=== PATIENT | male | born 1940 | race Caucasian/White ===

== ENCOUNTER 2018-12-21 09:53 | Day surgery (SDC) | payer MEDICARE, OTHER ==
[2018-12-16 09:59] LABS: BASOPHILS % (AUTO) 0.6 % (0-1); EOSINOPHILS # (AUTO) 0.3 X10'3 (0-0.9); EOSINOPHILS % (AUTO) 4.6 % (0-6); HEMATOCRIT 45.8 % (42.0-52.0); HEMOGLOBIN 15.6 g/dl (14.0-17.9); LYMPHOCYTES # (AUTO) 0.9 X10'3 (1.1-4.8); LYMPHOCYTES % (AUTO) 15.8 % (21-51); MEAN CORPUSCULAR HEMOGLOBIN 31.8 PG (27.0-31.0); MEAN CORPUSCULAR VOLUME 93.5 FL (78-98); MEAN PLATELET VOLUME 9.5 FL (7.4-10.4); MONOCYTES # (AUTO) 0.5 X10'3 (0-0.9); MONOCYTES % (AUTO) 8.5 % (2-12); NEUTROPHILS # (AUTO) 3.9 X10'3 (1.8-7.7); NEUTROPHILS % (AUTO) 70.5 % (42-75); PLATELET COUNT 136 X10'3 (140-440); RED CELL DISTRIBUTION WIDTH 13.9 % (11.5-14.5); WHITE BLOOD COUNT 5.5 X10'3 (4.5-11.0)
[2018-12-16 10:08] LABS: PARTIAL THROMBOPLASTIN TIME 25 SECONDS (22-32)
[2018-12-16 10:10] LABS: ALANINE AMINOTRANSFERASE 26 U/L (12-78); ALBUMIN 3.6 G/DL (3.4-5.0); ALBUMIN/GLOBULIN RATIO 1.1 (1.1-1.5); ALKALINE PHOSPHATASE 67 IU/L (46-116); ANION GAP 9 (8-16); ASPARTATE AMINO TRANSFERASE 22 U/L (10-37); BILIRUBIN,TOTAL 0.7 MG/DL (0.1-1.0); BLOOD UREA NITROGEN 19 MG/DL (7-18); BUN/CREATININE RATIO 16.7 (5.4-32.0); CHLORIDE 105 MMOL/L (99-107); CREATININE 1.14 MG/DL (0.60-1.10); GLUCOSE 165 MG/DL (70-104); POTASSIUM 3.9 MMOL/L (3.5-5.1); SODIUM 142 MMOL/L (135-145); TOTAL CARBON DIOXIDE 28.1 MMOL/L (24-32); TOTAL PROTEIN 6.8 G/DL (6.4-8.2); eGFR 62 ML/MIN
[~2018-12-21] VITALS: Ht 175.3 cm; Wt 110.8 kg
[2018-12-21] VITALS (12 sets, daily range): BP systolic 116–138; BP diastolic 48–81
[2018-12-21] MEDS ORDERED: LOSA1TAB36 PO (10:28)
[2018-12-21] MEDS ORDERED: VALA500T PO (10:28)
[2018-12-21] MEDS ORDERED: LYSI500T11 PO (10:28)
[2018-12-21] MEDS ORDERED: ASPI-611 PO (10:28)
[2018-12-21] MEDS ORDERED: VALS1TAB2 PO (10:28)
[2018-12-21] MEDS ORDERED: ASCO500C15 PO (10:28)
[2018-12-21] MEDS ORDERED: NEBI2.5T3 PO (10:28)
[2018-12-21] MEDS ORDERED: LORazepam 0.5 MG tablet PO PRN (10:45)
[2018-12-21] MEDS ORDERED: normal saline 1,000 ML IV SCH (10:45)
[2018-12-21] MEDS ORDERED: nitroGLYCERIN 0.4mg SUBLingual tab SL PRN (10:45)
[2018-12-21] MEDS ORDERED: diphenhydrAMINE 25mg capsule PO PRN (10:45)
[2018-12-21] MEDS ORDERED: midazolam 2 mg/2 ml injection ONE ×2 (11:51→12:42)
[2018-12-21] MEDS ORDERED: fentaNYL/PF 50MCG/1 ML 2ML syringe ONE (11:51)
[2018-12-21] MEDS ORDERED: iohexol 350MG/ML 100ml bottle IV ONE (11:52)
[2018-12-21] MEDS ORDERED: LIDOcaine 1% (10mg/ml)w/preservative injection 20ml MDV ONE (11:52)
[2018-12-21] MEDS ORDERED: iohexol 350 MG/ML 50ML vial IV ONE (11:52)
[2018-12-21] MEDS ORDERED: ondansetron/PF 4mg/2ml inj IV PRN (13:30)
[2018-12-21] MEDS ORDERED: OXAZEpam 15mg capsule PO PRN (13:30)
[2018-12-21] MEDS ORDERED: proCHLORperazine 10 MG/2 ml inj IV PRN (13:30)
== END 2018-12-21 19:30 | disposition home or self-care (01) ==
LOC: SSTAY O 09:53
PROVIDERS: ATTEND Internal Medicine Cardiovascular Disease
DX: R94.39 Abnormal result of other cardiovascular function study (principal); I25.10 Atherosclerotic heart disease of native coronary artery without angina pectoris; F17.210 Nicotine dependence, cigarettes, uncomplicated; I10 Essential (primary) hypertension; M19.90 Unspecified osteoarthritis, unspecified site; E78.5 Hyperlipidemia, unspecified; Z79.01 Long term (current) use of anticoagulants; Z79.899 Other long term (current) drug therapy; Z88.8 Allergy status to other drugs, medicaments and biological substances; Z85.46 Personal history of malignant neoplasm of prostate
CPT/HCPCS: 36415; 71046; 80053; 85025; 85610; 85730; 93458; 99152; C1769; J1644; J2001; J2250; J3010; J7030; Q0163; Q9967; 99153; A4620; A6258; C1760

== ENCOUNTER 2019-08-19 09:44 | Day surgery (SDC) | payer MEDICARE, OTHER ==
[~2019-08-19] VITALS: Ht 175.3 cm; Wt 113.6 kg
[~2019-08-19 09:44] MED LIST: ASCO500C15 PO; ASPI-611 PO; LOSA1TAB36 PO; LYSI500T11 PO; NEBI2.5T3 PO; VALA500T PO; VALS1TAB2 PO
[2019-08-19 10:30] VITALS: BP 128/73
[2019-08-19] MEDS ORDERED: normal saline 1000ml 1,000 ML IV PRN (10:30)
[2019-08-19] MEDS ORDERED: heparin sodium, porcine/PF 100unit/ml 5ML syringe ONE (12:02)
[2019-08-19] MEDS ORDERED: fentaNYL/PF 50MCG/1 ML 2ML syringe ONE (12:03)
[2019-08-19] MEDS ORDERED: midazolam 2 mg/2 ml injection ONE (12:03)
[2019-08-19] MEDS ORDERED: LIDOcaine 1%/PF 5ML 10 MG/ML VIAL ONE (12:03)
[2019-08-19 13:00] VITALS: BP 139/72
[2019-08-19 13:15] VITALS: BP 122/54
[2019-08-19 13:30] VITALS: BP 138/77
[2019-08-19] MEDS ORDERED: normal saline 1000ml 1,000 ML IV SCH (13:38)
[2019-08-19 13:45] VITALS: BP 130/70
[2019-08-19 14:00] VITALS: BP 138/74
== END 2019-08-19 14:05 | disposition home or self-care (01) ==
LOC: SSTAY O 09:44
PROVIDERS: ATTEND Radiology Vascular & Interventional Radiology
DX: C84.70 Anaplastic large cell lymphoma, ALK-negative, unspecified site (principal); Z11.59 Encounter for screening for other viral diseases; Z79.899 Other long term (current) drug therapy; Z79.84 Long term (current) use of oral hypoglycemic drugs
CPT/HCPCS: 36561; 76937; 77001; 87635; 99152; C1769; C1788; C1894; J1642; J2250; J3010; J7030

== ENCOUNTER 2024-07-14 21:10 | Emergency (ER) | payer MEDICARE, OTHER ==
[~2024-07-14] VITALS: Ht 175.3 cm; Wt 106.4 kg
[~2024-07-14 21:10] MED LIST changes: -ASCO500C15 PO; +ASCO500C18 PO; -NEBI2.5T3 PO; -VALS1TAB2 PO
[2024-07-14 21:28] VITALS: TEMP 97.9
--- NOTE | 2024-07-14 21:48 | ELECTROCARDIOGRAPH REPORT ---
[facility] Test Date: 2024-07-14 Test Time: 21:46:24 Pat Name: RUBEN KAUFMAN Department: [facility]- Patient ID: [id number] Room: Gender: M [employer] Principal: KELLY : 1940 Requested By: EDISON SNYDER Order Number: [id number] Reading MD: Dr. Jeremi Patricio Measurements Intervals [place] Rate: 75 P: 51 SC: 196 QRS: 70 QRSD: 156 T: 14 QT: 420 QTc: 470 Interpretive Statements Sinus rhythm Ventricular premature complex Right bundle branch block Anteroseptal infarct, age indeterminate Electronically Signed On 07-15-2024 11:26:[address] Jeremi Patricio Please click the below link to view image of tracing.
[2024-07-14 21:55] LABS: BASOPHILS # (AUTO) 0.1 X10'3 (0-0.2); BASOPHILS % (AUTO) 0.8 % (0-1); EOSINOPHILS # (AUTO) 0.3 X10'3 (0-0.9); EOSINOPHILS % (AUTO) 3.8 % (0-6); HEMATOCRIT 38.1 % (42.0-52.0); HEMOGLOBIN 12.9 g/dl (14.0-17.9); LYMPHOCYTES # (AUTO) 0.7 X10'3 (1.1-4.8); LYMPHOCYTES % (AUTO) 9.4 % (21-51); MEAN CORPUSCULAR HEMOGLOBIN 29.7 PG (27.0-31.0); MEAN CORPUSCULAR HGB CONC 33.9 g/dL (33.0-36.5); MEAN CORPUSCULAR VOLUME 87.8 FL (78-98); MEAN PLATELET VOLUME 8.1 FL (7.4-10.4); MONOCYTES # (AUTO) 0.6 X10'3 (0-0.9); MONOCYTES % (AUTO) 9.1 % (2-12); NEUTROPHILS # (AUTO) 5.4 X10'3 (1.8-7.7); NEUTROPHILS % (AUTO) 76.9 % (42-75); PLATELET COUNT 156 X10'3 (140-440); RED BLOOD COUNT 4.34 X10'6 (4.70-6.10); RED CELL DISTRIBUTION WIDTH 14.4 % (11.5-14.5); WHITE BLOOD COUNT 7.1 X10'3 (4.5-11.0)
--- NOTE | 2024-07-14 22:08 | RADIOLOGY REPORT ---
Clinical History CP Comparison None Technique: A single AP/PA chest radiograph was provided for review. Without Contrast JOSÉ KAUFMANY, [id number] FINDINGS: Lungs: Hypoexpanded lungs without pneumothorax, focal consolidation, pleural effusion or mass. Linea r densities at the lung bases may represent atelectasis/scarring vs infiltrates. Heart: Normal in size and configuration. Mediastinum: Within normal limits. Vasculature: Within normal limits. Tubes/lines: None. Osseous structures: No evidence for acute fracture. IMPRESSION: Low lung volumes. Unremarkable mediastinum. Normal pulmonary vasculature. Linear densities at the lung bases may represent atelectasis/scarring vs infiltrates. This report was electronically signed by Tevin Sanchez MD on 07/14/2024 10:04:49 PM.
[2024-07-14 22:09] LABS: ALANINE AMINOTRANSFERASE 20 U/L (12-78); ALBUMIN 3.5 G/DL (3.4-5.0); ALBUMIN/GLOBULIN RATIO 1.3 (1.1-1.5); ALKALINE PHOSPHATASE 65 IU/L (46-116); ANION GAP 6 (8-16); ASPARTATE AMINO TRANSFERASE 27 U/L (10-37); BILIRUBIN,TOTAL 1.1 MG/DL (0.1-1.0); BLOOD UREA NITROGEN 25 MG/DL (7-18); BUN/CREATININE RATIO 16.8 (10.0-20.0); CALCIUM 8.7 MG/DL (8.5-10.1); CHLORIDE 99 MMOL/L (99-107); CREATININE 1.49 MG/DL (0.60-1.10); GLUCOSE 98 MG/DL (70-104); POTASSIUM 4.4 MMOL/L (3.5-5.1); SODIUM 136 MMOL/L (135-145); TOTAL CARBON DIOXIDE 31.4 MMOL/L (24-32); TOTAL PROTEIN 6.2 G/DL (6.4-8.2); eCRCL 38 ML/MIN; eGFR 45 ML/MIN
[2024-07-14 22:16] LABS: PRO BRAIN NATRIURETIC PEPTIDE 300 PG/ML (0-450)
--- NOTE | 2024-07-14 23:34 | Physician Documentation ---
History of Present Illness ~ General Chief Complaint: See Chief Complaint Stated Complaint: INGESTION ERROR Time Seen by MD: 22:38 History of Present Illness Initial Comments This is a 84-year-old gentleman who recently started furosemide and metformin, reports a potential medication side-effect. He states it is with a in 2 minutes of taking the medication he felt extremely anxious and generally weak. No particular palliating or aggravating factors were elicited with the patient. It was not accompanied by chest pain or difficulty breathing. It resolved spontaneously. He is now symptom free. This never happened in the past. Denies use of tobacco, alcohol or illicit substances. Compliant with his medications. Medication Reconciliation Allergies: Coded Allergies: No Known Allergies (Unverified , 07/14/24) Scheduled Ascorbic Acid (Vitamin C), 1 CAP PO DAILY, (Reported) Aspirin (Aspir 81), 1 TAB PO DAILY, (Reported) Losartan/Hydrochlorothiazide (Losartan-Hctz 50-12.5 Mg Tab), 1 TAB PO DAILY, (Reported) Lysine (l-Lysine), 1 TAB PO DAILY, (Reported) Valacyclovir Hcl (Valtrex), 1 TAB PO DAILY, (Reported) Review of Systems ROS 10 point review of systems was performed and unless noted above in HPI is negative for acute process/complaint. Physical Exam Physical Exam Vital Signs: Temperature: 97.9, Source: Temporal, Heart Rate: 72, Respiratory Rate: 15, BP: 134/65, Pulse Oximetry: 98, Weight: 106.360 Physical Exam GENERAL: Awake, alert, oriented, GCS 15, no apparent distress, non-toxic appearing, answers questions, follows commands appropriately. HEENT: Atraumatic, normocephalic, pupils equal, extraocular muscles intact, sclerae anicteric, mucus membranes moist, oropharynx is clear, no stridor. NECK: supple, full active range of motion, trachea midline, no thyromegaly, no lymphadenopathy, no JVD. CARDIOVASCULAR: regular rate/rhythm, no murmurs/gallops/rubs, Pulses are 2+ in all extremities and symmetric. Capillary refill less than 2 seconds. PULMONARY: Nonlabored, good air movement ,no respiratory distress, speaking in full sentences, clear to auscultation bilaterally, no wheezing, no ronchi, no rales, no accessory muscle use. GASTROINTESTINAL: Soft, non-tender, non-distended, normal active bowel sounds, no organomegaly, no pulsatile masses, no CVA tenderness. NEUROLOGIC: Lucid with normal mental status. Normal facial symmetry. Moves all extremities symmetrically and with purpose. No truncal ataxia. Speech is fluid without evidence of dysarthria or aphasia, no focal deficits appreciated. MUSCULOSKELETAL: There is full range of motion of all extremities. There is no joint pain or joint swelling or joint erythema. There is no muscle pain or tenderness or swelling. EXTREMITIES: warm, well-perfused, no cyanosis, no clubbing, no edema, no acute deformities. Skin: warm, dry, no rashes or lesions, no jaundice, no petechiae orpurpura. No ecchymosis. PSYCHIATRIC: Normal affect, normal insight, normal concentration. Focused exam: [] Progress Results/Orders Results/Orders Orders - EDISON SNYDER DO Chest,Single View (07/14/24 21:40) Monitor (07/14/24 21:40) Saline Lock (07/14/24 21:40) Oxygen (07/14/24 21:40) Hs Troponin I W Calculations (07/14/24 23:40) Hs Troponin I W Calculations (07/15/24 00:40) Completed Orders - EDISON SNYDER DO Chest,Single View (07/14/24 21:40) Cbc/Diff (07/14/24 21:40) PBNP (07/14/24 21:40) Electrocardiogram (07/14/24 21:40) CMP (07/14/24 21:40) Hs Troponin I W Calculations (07/14/24 21:40) Vital Signs 07/14/24 07/14/24 07/14/24 21:28 22:50 22:50 Temp 97.9 Pulse 79 72 Resp 18 15 B/P (MAP) 112/70 134/65 (88) Pulse Ox 90 95 98 O2 Delivery Room Air* O2 Flow Rate 0 FiO2 21 Laboratory Tests Test 07/14/24 21:36 07/14/24 21:48 Glucometer 111 H White Blood Count 7.1 Red Blood Count 4.34 L Hemoglobin 12.9 L Hematocrit 38.1 L Mean Corpuscular Volume 87.8 Mean Corpuscular Hemoglobin 29.7 Mean Corpuscular Hemoglobin Concent 33.9 Red Cell Distribution Width 14.4 Platelet Count 156 Mean Platelet Volume 8.1 Neutrophils (%) (Auto) 76.9 H Lymphocytes (%) (Auto) 9.4 L Monocytes (%) (Auto) 9.1 Eosinophils (%) (Auto) 3.8 Basophils (%) (Auto) 0.8 Neutrophils # (Auto) 5.4 Lymphocytes # (Auto) 0.7 L Monocytes # (Auto) 0.6 Eosinophils # (Auto) 0.3 Basophils # (Auto) 0.1 CBC Comment Sodium Level 136 Potassium Level 4.4 Chloride Level 99 Carbon Dioxide Level 31.4 Anion Gap 6 L Blood Urea Nitrogen 25 H Creatinine 1.49 H Estimated GFR/1.73 m2 45 BUN/Creatinine Ratio 16.8 Glucose Level 98 Calcium Level 8.7 Total Bilirubin 1.1 H Aspartate Amino Transf (AST/SGOT) 27 Alanine Aminotransferase (ALT/SGPT) 20 Alkaline Phosphatase 65 Troponin I High Sensitivity 8 Pro-B-Type Natriuretic Peptide 300 Total Protein 6.2 L Albumin 3.5 Globulin 2.7 Albumin/Globulin Ratio 1.3 Chemistry Comments EKG/XRAY/CT/US/VASC/MRI EKG : Additional Comment EKG was obtained and interpreted by myself showing sinus rhythm of 75, normal HI interval, wide QRS with a right bundle, no QT prolongation, normal axis, PVC is noted. Medical Decision Making Findings Facility Status: [facility], [facility] process The plan was discussed with the patient, who demonstrates clear understanding of the plan and is in agreement with the plan unless otherwise noted in the chart. All questions have been answered, all concerns were addressed unless otherwise documented. I was available throughout their ED stay for frequent reassessment and questions. Differential Diagnoses (considered and possible or likely): [Unlikely to represent medication side-effect, dehydration, electrolyte derangement or in differential, anxiety has been considerably is diagnosis of exclusion. Highly unlikely to be ACS.] ??Differential Diagnoses (considered and unlikely, not requiring evaluation currently): [No evidence of lateralizing sinuses suspect a stroke] MDM Data Please see HPI for the following: Independent Historians and external Records Review. Historian: [Patient] Independent Historians: ?[Non] Medication Management: [Reviewed medication list] Social History and determinants: [Reviewed] Please see the body of the note for the following: Any independent interpretations of ECG, imaging studies. All vitals signs/haemodynamics, ordered tests were independently reviewed and interpreted by myself. Nursing triage complaint and vitals reviewed, additional nursing notes were reviewed as available and I agree unless otherwise noted or documented in contradiction in the chart Vital Signs: Independently reviewed Labs: Independently interpreted Imaging: Independently interpreted Old Medical Records: Independently reviewed, see HPI for relevant summary and information Pulse Oximetry: [95% on 2 L] interpreted as [baseline for the gentleman] by me [Cereal Chemist: [Regular Rate, Regular rhythm, no ectopy, NSR] reviewed and interpreted by me] Additionally notably showing: [Hemodynamically stable. Unremarkable workup, unremarkable chest x-ray without evidence of cardiomegaly or acute disease.] Tests considered but not ordered include: [Advanced imaging has been considerably does not appear to be necessary as the risk of PE is low] Social Determinants of Health Impact: Patient was evaluated in [facility] [place] to healthcare due to below par ratio of patient to medical providers. [] Comorbid Conditions Impacting Present Evaluation and Care/Treatment: [See list] Management Discussions with other Healthcare Providers: [None] Treatment and Disposition Medication Management (Given or considered): []. See EMR for details Consideration for Hospitalization/Escalation/Deescalation of Care: Admission for observation has been considered, [however the patient is able to tolerate p.o., their symptoms are controlled, they are able to rely on oral medications, and their chief complaint/diagnosis can be managed on outpatient basis.] ?ED Course:?[The patient is completely symptom free.] ?Shared decision making:?[Discussed admission for observation, however he desires to go home. He is symptom free. Understands return precautions. Patient is hemodynamically stable for discharge home with follow with their primary care provider. [ ] Specific and cautious return precautions provided and discussed with full understanding. Any incidental findings were also discussed and follow up recommendations given. [] All questions answered. Patient/family were able to verbalize back return precautions. Patient/family agree to plan. Copies of imaging and laboratory studies were provided.] Code status:?FULL Please see the full Electronic Medical Record for full details of nursing documentation, medications list, other records of complete past medical history and conditions, vital signs, laboratory studies, and any radiologic study interpretations by radiologists. Portions of this note were completed using [employer] dictation software and as a result there may exist minor errors in spelling. I have reviewed elements of past family and social history and agree as included in note. Departure Disposition: 01 HOME / SELF CARE / HOMELESS Impression: Primary Impression: Generalized weakness Additional Impression: Anxiety Condition: Improved Discharge Instructions: Weakness Referrals: NO PRIMARY CARE PROVIDER (PCP) Education Educated: Patient Educated regarding: diagnosis, treatment, prognosis, need for follow up Signature Scribe Signature: No scribe Attestation: This note accurately reflects clinical decisions, work performed by myself, DO CLAUDIO Flower NICHOLAS M DO July 14, 2024 23:34
[2024-07-14 23:57] VITALS: BP 136/66; PULSE 72; RESP 19; O2SAT 98
== END 2024-07-15 00:07 | disposition home or self-care (01) ==
LOC: ER 21:11
DX: F41.9 Anxiety disorder, unspecified (principal); R53.1 Weakness; Z79.82 Long term (current) use of aspirin
CPT/HCPCS: 36415; 71045; 80053; 82948; 83880; 84484; 85025; 93005; 99285; A4615